=== PATIENT | female | born 1945 | race Caucasian/White ===

== ENCOUNTER 2023-06-17 10:58 | Emergency (ER) | payer MEDICARE, BC ==
[2023-06-17 11:45] LABS: ALT (SGPT) 12 U/L (8-55); AST (SGOT) 13 U/L (5-34); Albumin 3.4 g/dL (3.4-4.8); Alkaline Phosphatase 97 U/L (40-110); Anion Gap 16 mmol/L (10-20); BUN (Urea Nitrogen) 11 mg/dL (9.8-20.1); Bilirubin, Total 1.1 mg/dL (0.2-1.2); Calc. Creatinine Clearance 0 mL/min (70-130); Calcium 7.3 mg/dL (7.8-10.44); Carbon Dioxide 31 mmol/L (23-31); Chloride 91 mmol/L (98-107); Estimated GFR 90; Globulin 1.8 g/dL (2.4-3.5); Glucose 181 mg/dL (83-110); Potassium 2.7 mmol/L (3.5-5.1); Protein, Total 5.2 g/dL (5.8-8.1); Sodium 135 mmol/L (136-145)
[2023-06-17 11:48] LABS: Troponin I Less than 0.010 ng/mL (< 0.028)
[2023-06-17 12:16] LABS: Hematocrit 35.5 % (34.9-44.5); Hemoglobin 12.7 g/dL (12.0-15.5); Mean Corpuscular HGB CONC 35.8 g/dL (32.0-36.0); Mean Corpuscular Volume 78.4 fl (81.6-98.3); RBC Distribution Width 13.2 % (11.5-14.5); Red Blood Cell (RBC) Count 4.53 10x6/uL (3.90-5.03)
[2023-06-17 12:24] LABS: MDiff Complete? YES
[2023-06-17 12:37] LABS: Mean Platelet Volume 11.9 fl (7.4-10.4); Platelet Count 69 10x3/uL (150-450)
[2023-06-17 12:56] LABS: Band 2 % (5-11); Lymphocytes 3 % (21-51); Monocytes 20 % (0-10); Neutrophil 61 % (42-75); Other Cell Types 10; Reactive Lymphocytes 4 % (0-10)
[2023-06-17 12:58] LABS: Reflex for Review?? YES
[2023-06-17 12:59] LABS: Microcytosis SLIGHT = 6-15 cells (100X) (0-5/hpf); Platelet Adequacy Comment Appears Decreased
[2023-06-17] MEDS ORDERED: Potassium Chloride 20 MEQ TAB ONE (12:59)
[2023-06-17 13:17] LABS: Magnesium 1.6 mg/dL (1.6-2.6)
[2023-06-17] MEDS ORDERED: cefTRIAXone (ROCEPHIN) 1 GM VIAL ONE (14:15)
[2023-06-17] MEDS ORDERED: Azithromycin 500 MG VIAL ONE (14:58)
== END 2023-06-17 16:59 | disposition home or self-care (01) ==
LOC: CSHERS 10:58
DX: J90 Pleural effusion, not elsewhere classified (principal); D72.829 Elevated white blood cell count, unspecified; E03.9 Hypothyroidism, unspecified
CPT/HCPCS: 71045; 71275; 80053; 83735; 83880; 84484; 85025; 85379; 93005; J0456; 85060; 96365; 96366; 96367; J0696